=== PATIENT | female | born 1970 | race Caucasian/White ===

== ENCOUNTER 2017-04-18 19:09 | Emergency (ER) | payer OTHER ==
--- NOTE | 2017-04-18 21:08 | CT ---
CT OF BRAIN PERFORMED WITHOUT CONTRAST ENHANCEMENT: 04/18/17 HISTORY: Head injury. The ventricular and cisternal system is within normal limits. There are no signs of intracerebral hem orrhage or extra-axial fluid collections. Prominent Virchow-Cirstian space is noted on the right. No hem orrhage or mass effect. Mastoid air cells and visualized sinuses are clear. IMPRESSION: No acute intracranial abnormalities. POS: [facility]
== END 2017-04-18 19:55 | disposition home or self-care (01) ==
LOC: SCSER 19:09
DX: S09.90XA Unspecified injury of head, initial encounter (principal); D64.9 Anemia, unspecified; Z79.899 Other long term (current) drug therapy; W20.8XXA Other cause of strike by thrown, projected or falling object, initial encounter
CPT/HCPCS: 70450

== ENCOUNTER 2017-11-17 08:09 | Emergency (ER) | payer OTHER ==
[2017-11-17 08:34] LABS: #Lymphocytes 0.7 thou/uL (1.20-3.40); #Monocytes 0.3 thou/uL (0.11-0.59); #Neutrophils 8.6 thou/uL (1.40-6.50); %Basophils 0.1 % (0.0-1.0); %Eosinophils 0.1 % (0.0-10.0); %Lymphocytes 7.5 % (21.0-51.0); %Monocytes 2.9 % (0.0-10.0); %Neutrophils 89.4 % (42.0-75.0); Hemoglobin 13.2 g/dL (12.0-16.0); Mean Corpuscular HGB CONC 32.1 g/dL (32.0-36.0); Mean Corpuscular Hemoglobin 31.3 pg (27.0-31.0); Mean Corpuscular Volume 97.4 fL (78.0-98.0); Platelet Count 231 thou/uL (130-400); RBC Distribution Width 11.7 % (11.5-14.5); White Blood Cell (WBC) Count 9.6 thou/uL (4.8-10.8)
--- NOTE | 2017-11-17 08:49 | RAD ---
1 VIEW CHEST: Date: 11/17/17 COMPARISON: 05/17/15. HISTORY: Pain. FINDINGS: Normal cardiac silhouette. Pulmonary vessels and hilum are normal. Costophrenic angles are clear. No consolidation or mass. Air underneath the left hemidiaphragm is presumed to be in the stomach. There appears to be air distending the esophagus. No pneumothorax or osseous abnormalities. IMPRESSION: No acute cardiopulmonary process. Confirmation with a 2 view chest radiograph is recommended. Results of study discussed with Dr. Mehreen ordoñez on 11/17/17 at 0845 hours. CODE CR. POS: [facility]
[2017-11-17] MEDS ORDERED: Morphine 4 MG/ML VIAL ONE (08:52)
[2017-11-17] MEDS ORDERED: Ondansetron HCl/PF 4 MG/2 ML Vial ONE (08:53)
[2017-11-17 08:54] LABS: ALT (SGPT) 7 U/L (8-55); AST (SGOT) 11 U/L (5-34); Albumin 3.9 g/dL (3.5-5.0); Alkaline Phosphatase 64 U/L (40-150); Anion Gap 11 mmol/L (10-20); BUN (Urea Nitrogen) 14 mg/dL (7.0-18.7); Bilirubin, Total 0.3 mg/dL (0.2-1.2); CK (CPK) 50 U/L (29-168); Calc. Creatinine Clearance 0 mL/min (70-130); Calcium 9.5 mg/dL (7.8-10.44); Carbon Dioxide 24 mmol/L (22-29); Chloride 110 mmol/L (98-107); Estimated GFR-MDRD 83; Globulin 2.7 g/dL (2.4-3.5); Glucose 138 mg/dL (70-105); Lipase 30 U/L (8-78); Potassium 3.5 mmol/L (3.5-5.1); Protein, Total 6.6 g/dL (6.0-8.3); Sodium 141 mmol/L (136-145)
[2017-11-17 08:57] LABS: CKMB 1.4 ng/mL (0-6.6); Troponin I Less than 0.010 ng/mL (< 0.028)
--- NOTE | 2017-11-17 09:41 | RAD ---
PA AND LATERAL CHEST XRAY: DATE: 11/17/17. HISTORY: Chest pressure. History of gastric band procedure in 2002. The patient states chest pressure is in the center of chest. COMPARISON: 11/17/17 at 1041 hours. FINDINGS: There is a moderately distended esophagus from the level of the cervical esophagus to the level of th e GE junction. Provided history states a history of prior gastric band. However, a gastric band is not visualized on this exam. The cardiac silhouette and pulmonary vasculature are within normal limits. The lungs remain clear. There has been no interval change from prior exam. IMPRESSION: 1. Moderately distended esophagus. 2. On the prior study there was a mention of gas beneath the hemidiaphragm, but this is noted to be gas within bowel loops in the upper abdomen likely related to gas within the stomach. 3. The above findings were discussed with Dr. Coronado on 11/17/17 at 0918 hours. POS: [facility]
[2017-11-17 10:00] LABS: Bilirubin Negative (Negative); Blood, Urine Negative (Negative); Glucose, Urine (Dipstick) Negative (Negative); Leukocyte Negative (Negative); Nitrite Negative (Negative); Protein, Urine (Dipstick) Negative (Neg-Trace); Urobilinogen 0.2 mg/dL (0.2-1.0); pH, Urine 6.5 (5.0-9.0)
[2017-11-17 10:01] LABS: Clarity Cloudy (Clear)
--- NOTE | 2017-11-17 11:08 | RAD ---
ABDOMEN 2 VIEWS: Date: 11/17/17 HISTORY: Abdomen pain. FINDINGS: Gas and stool are apparent within the colon and rectum. Nondilated gas-filled loops of small bowel ar e present throughout the abdomen. No differential air fluid levels or evidence of free subdiaphragmat ic gas. Metallic clip overlies the gallbladder fossa. Dilatation of the esophagus is stable compared to prior chest radiographs. Phleboliths project over the pelvis. IMPRESSION: 1. Chronic esophageal dilatation. 2. Postoperative change of the abdomen. 3. Nonspecific bowel gas pattern. POS: [facility]
[2017-11-17] MEDS ORDERED: Pantoprazole 40 MG VIAL ONE (11:09)
== END 2017-11-17 12:25 | disposition home or self-care (01) ==
LOC: ERS 08:09
DX: K22.8 Other specified diseases of esophagus (principal); R07.9 Chest pain, unspecified; D64.9 Anemia, unspecified; Z79.899 Other long term (current) drug therapy
CPT/HCPCS: 36415; 71045; 71046; 74019; 80053; 81003; 82553; 83690; 83880; 84484; 85025; 93005; 96361; 96374; 96375; C9113; J2270; J2405

== ENCOUNTER 2017-11-19 11:01 | Inpatient (IN) | payer OTHER ==
[2017-11-19] MEDS ORDERED: Pantoprazole 40 MG VIAL IVP SCH (12:00)
[2017-11-19 12:47] LABS: ALT (SGPT) 59 U/L (8-55); AST (SGOT) 65 U/L (5-34); Alkaline Phosphatase 108 U/L (40-150); Anion Gap 16 mmol/L (10-20); BUN (Urea Nitrogen) 8 mg/dL (7.0-18.7); Bilirubin, Total 0.5 mg/dL (0.2-1.2); Calc. Creatinine Clearance 0 mL/min (70-130); Calcium 9.2 mg/dL (7.8-10.44); Carbon Dioxide 20 mmol/L (22-29); Chloride 105 mmol/L (98-107); Estimated GFR-MDRD 83; Globulin 2.9 g/dL (2.4-3.5); Glucose 86 mg/dL (70-105); Potassium 3.7 mmol/L (3.5-5.1); Protein, Total 6.9 g/dL (6.0-8.3); Sodium 137 mmol/L (136-145)
[2017-11-19] MEDS: Sodium Chloride 0.9% 1,000 ML IV SCH ×2 (12:49→20:36)
[2017-11-19 13:15] LABS: #Eosinphils 0.1 thou/uL (0.0-0.7); #Lymphocytes 1.3 thou/uL (1.20-3.40); #Monocytes 0.6 thou/uL (0.11-0.59); #Neutrophils 5.2 thou/uL (1.40-6.50); %Basophils 0.5 % (0.0-1.0); %Eosinophils 1.2 % (0.0-10.0); %Lymphocytes 17.9 % (21.0-51.0); %Monocytes 8.4 % (0.0-10.0); Hemoglobin 13.8 g/dL (12.0-16.0); Mean Corpuscular HGB CONC 33.5 g/dL (32.0-36.0); Mean Corpuscular Hemoglobin 32.3 pg (27.0-31.0); Mean Corpuscular Volume 96.2 fL (78.0-98.0); Mean Platelet Volume 9.5 fL (7.4-10.4); Platelet Count 247 thou/uL (130-400); RBC Distribution Width 11.5 % (11.5-14.5); RBC Morphology Normal; Red Blood Cell (RBC) Count 4.28 mill/uL (4.20-5.40); White Blood Cell (WBC) Count 7.3 thou/uL (4.8-10.8)
[2017-11-19] MEDS ORDERED: Lidocaine 1% PF 5 ML VIAL ONE (14:08)
[2017-11-19] MEDS ORDERED: PROPOFOL 200 MG/20 ML VIAL ONE (14:08)
[2017-11-19] MEDS ORDERED: Morphine 4 MG/ML VIAL ONE (16:14)
[2017-11-19] MEDS ORDERED: Ondansetron HCl/PF 4 MG/2 ML Vial ONE (16:22)
[2017-11-19 16:29] VITALS: BMI 25.3
--- NOTE | 2017-11-19 17:59 | CON ---
DATE OF CONSULTATION: 11/19/2017 REASON FOR CONSULTATION: Epigastric pain and vomiting. HISTORY OF PRESENT ILLNESS: Ms. Quiroga is a pleasant 47-year-old female who came to the hospital for acute epigastric pain and dry heaving, which began on Friday. She states that in 2002, she had a Christy band placed. She lost about 30 pounds without surgery and then stayed about the same level. Occasionally, she has intermittent problems with dysphagia , food seems to hang up when she swallowed, but she has not anything like what occurred on Friday. On Friday, she states she was eating and then got to where food would go down and she could not swallow any more food when come back up, she was dry heaving, she has green secretions. That ultimately stopped. She was able to handle secretions, but still has pain in the upper chest region. She went to the emergency room and on 11/17/2017, had x-rays of chest, which showed no inflitrate. There was moderately distended esophagus noted and laboratory studies show a normal CBC, normal complete metabolic profile, and normal lipase. She had negative cardiac enzymes, in fact, she has actually gone to the hospital because of the pressure she felt in her chest were from her heart. She was ultimately released to go see Dr. Ruiz in the office today and she had told him that she just felt very uncomfortable in her chest region, the symptoms go on, it is like tight or sharp pain in the mid chest region between the xiphoid and the suprasternal notch. She denies any shortness of breath or dyspnea. She can handle liquids presently, but not solids. The pain does not radiate to the back or anywhere else. Dr. Ruiz put her the hospital with a plan for removing her band tomorrow surgically. PAST MEDICAL HISTORY: Anemia; she is seeing Dr. Artis for this in the past; headache; reflux. PAST SURGICAL HISTORY: Cholecystectomy at the time of her Christy gastric banding. She has had hip surgery, she had a cataract surgery to her eyes, she states this was felt to be possibly due to steroids that she took for allergies. She has had cosmetic surgery in buttocks and hips. PRESENT MEDICATIONS AT HOME: Tizanidine, topiramate, Protonix, Zyrtec, calcium carbonate, Tums, H[place]. MEDICATIONS: Presently Zofran, morphine, Protonix 40 IV every day, sodium chloride 125 an hour, she had a rotator cuff surgery. SOCIAL HISTORY: Denies alcohol, drug use, smoking history. ALLERGIES: ERYTHROMYCIN, NITRATES, NSAIDS, PENICILLIN, PENTAZOCINE. PHYSICAL EXAMINATION: VITAL SIGNS: Temperature is 98.4, pulse 88, blood pressure 130/76. Saturation 94% to 99%. LUNGS: Clear. HEART: Regular, without murmurs. ABDOMEN: Soft, nontender. No palpable hepatosplenomegaly. EXTREMITIES: No clubbing, cyanosis or edema. CHEST: Chest wall is nontender. LABORATORY DATA: White count 7.3, hemoglobin 13.8, platelet count 247. Comprehensive metabolic profile was normal except for an AST, and ALT of 65 and 59. Bilirubin, and albumin were normal. Iron studies, ferritin was 217 on . ASSESSMENT: 1. Chest pain after swallowing and eating. She feels it almost is like her esophagus and stomach would not open. She had an x-ray that showed a dilated esophagus. She has had previous history of Christy band. Dr. Ruiz saw her and is concerned for possible of stenosis in the stomach not permitting food or other mucosal past this area or possibly the band is even eroded through her stomach, is plan on removing it tomorrow. I have asked to perform an EGD first today. 2. chest pain, does seem to be esophageal in nature. Cardiac enzymes ruled out. She has no pulmonary symptoms. Would plan EGD, if this is nondiagnostic, may reasonably consider a CT scan imaging. This was not done in the emergency room. 3. Agree with PPI and n.p.o. status. We will discuss findings with Dr. Ruiz once EGD is complete today. PLAN: EGD today. Risks, benefits, and possible complications of procedure was discussed with the patient, she wished to proceed. MTDD
[2017-11-19] MEDS: Pantoprazole 40 MG VIAL IVP SCH (20:37)
[2017-11-19] MEDS: Ondansetron HCl/PF 4 MG/2 ML Vial IVP PRN (21:09)
[2017-11-20] MEDS: Ondansetron HCl/PF 4 MG/2 ML Vial IVP PRN (03:24)
[2017-11-20] MEDS: Sodium Chloride 0.9% 1,000 ML IV SCH ×2 (03:41→11:59)
[2017-11-20] MEDS ORDERED: Morphine 4 MG/ML VIAL ONE (07:34)
[2017-11-20] MEDS ORDERED: Sodium Chloride 0.9% 100 ML ONE (08:21)
[2017-11-20] MEDS ORDERED: cefOXitin 2 GM VIAL ONE (08:21)
[2017-11-20] MEDS ORDERED: Ketorolac Tromethamine 30 MG/ML VIAL ONE (08:22)
[2017-11-20] MEDS ORDERED: Pantoprazole 40 MG VIAL IVP SCH (09:00)
[2017-11-20] MEDS: Pantoprazole 40 MG VIAL IVP SCH ×2 (09:13→20:00)
[2017-11-20] MEDS ORDERED: Bupivacaine/Epinephrine 0.25% 30 ML VIAL ONE (09:16)
[2017-11-20] MEDS ORDERED: Fentanyl 100 MCG/2 ML VIAL ONE ×3 (09:30→10:24)
[2017-11-20] MEDS ORDERED: Midazolam HCl 2 mg/2 ml Vial ONE (09:31)
[2017-11-20] MEDS ORDERED: Glycopyrrolate 0.2 MG/ML 5 ML SYRINGE ONE (10:36)
[2017-11-20] MEDS ORDERED: PROPOFOL 200 MG/20 ML VIAL ONE (10:36)
[2017-11-20] MEDS ORDERED: Esmolol 100 MG/10 ML VIAL ONE (10:36)
[2017-11-20] MEDS ORDERED: Ondansetron HCl/PF 4 MG/2 ML Vial ONE (10:36)
[2017-11-20] MEDS ORDERED: Succinylcholine Chloride 20 MG/ML 10 ml SYRINGE FS ONE (10:36)
[2017-11-20] MEDS ORDERED: Ondansetron HCl/PF 4 MG/2 ML Vial IVP PRN ×2 (12:21→13:12)
[2017-11-20] MEDS ORDERED: Promethazine HCl 25 MG/ML VIAL IM PRN ×2 (12:21→13:12)
[2017-11-20] MEDS ORDERED: Promethazine HCl 25 MG/ML VIAL SLOW IVP PRN (12:21)
[2017-11-20] MEDS ORDERED: D5 1/2 NS w/20 mEq KCL 1,000 ML ONE (13:00)
[2017-11-20] MEDS ORDERED: Promethazine HCl 25 MG/ML VIAL ONE (13:07)
[2017-11-20] MEDS ORDERED: Dextrose 50% Abboject 50 ML SYRINGE SLOW IVP PRN (13:12)
[2017-11-20] MEDS ORDERED: hydrALAZINE 20 MG/ML VIAL SLOW IVP PRN (13:12)
[2017-11-20] MEDS ORDERED: diphenhydrAMINE 50 MG/ML VIAL IVP PRN (13:12)
[2017-11-20] MEDS ORDERED: Dextrose 5% in Water 1,000 ML IV PRN (13:12)
[2017-11-20] MEDS ORDERED: Hydrocodone-Acetamin 15 ML UDCUP PO PRN (13:12)
[2017-11-20] MEDS: D5 1/2 NS w/20 mEq KCL 1,000 ML IV SCH ×2 (13:37→21:57)
[2017-11-20] MEDS: Morphine 4 MG/ML VIAL SLOW IVP PRN ×2 (16:52→20:04)
--- NOTE | 2017-11-20 17:29 | OP ---
HISTORY: Ms. Quiroga came in with nausea, vomiting, epigastric pain, history of previous Christy band . She has had problems for several years, although more recently she had a severe bout of pain this past Friday with epigastric pain and could vomit some slight and nothing can go down. She has recurr ent issues with regurgitation. Dr. Ruiz saw the patient in the office and plans to remove her ban d asked for preoperative EGD. PROCEDURES: EGD. ANESTHESIA: TIVA. COMPLICATIONS: The patient had desaturation, requiring removal of the scope and temporary bag mask v entilation. She seemed to have laryngospasm and recurrent coughing and choking throughout the proced ure. The patient notes she has episodes like this at night often, does suspect are probably related to chronic regurgitation and aspiration. POSTOPERATIVE DIAGNOSES: 1. Severe LA grade D esophagitis above 2 x 3 cm shallow, but significant ulcer in the distal esophag us consistent with recurrent regurgitation and reflux, not biopsied secondary to difficulty patient m aintaining saturations and coughing and choking throughout the procedure. 2. The GE junction was at 40 cm, which was normal. On entering the stomach, there was a large pucke red area of mucosa with very strictured area consistent with history of Christy band about 5-7 cm belo w the GE junction. There was quite a bit of fluid in this area to suction away immediately. The pat ient's head of bed was kept elevated the entire time. She denied any overt aspiration. 3. We were able to pass the narrowed area transiently. No ulcers, masses or eroding bands were seen in this area. We were able to see the pylorus, but unable to pass as we had to abandon the procedur e for bag mask ventilation for a time. Endoscope had to be removed. 4. Replacing the scope into the esophagus and upper stomach, multiple attempts were made to pass the band again, but this was unsuccessful and with the patient's difficulty with the procedure despite b est efforts of anesthesia and they offered intubation, but we decided not to proceed with that. The band be removed tomorrow. No overtly necrotic or gangrenous gastric mucosa was seen. I do no t think this could be managed endoscopically. Dr. Ruiz planned some surgical removal of her band tomorrow. If it does not seem to be feasible, the next step will be I would be getting imaging studi es to identify the actual stomach. RECOMMENDATIONS: Keep patient n.p.o., IV Protonix q.12 hours. ANESTHESIA: TIVA. PROCEDURE IN DETAIL: After the patient informed of the risks, benefits, possible complications of en doscopy including perforation, bleeding, reactions to medication and aspiration, informed consent was obtained. The patient brought to the endoscopy suite where she was sedated in gradual fashion. Onc e she was comfortable, a bite block was placed in the incisural orifice. The endoscope was advanced through the esophagus, stomach, and stricture in the proximal esophagus likely caused by her Mo michael band. The pylorus could be just seen could be passed, but then we had to come out as the patient had difficult with respiration and was needed bag mask ventilation. Once her saturations imp roved, the endoscope was readvanced in the esophagus, stomach, and duodenum. There was a large ulcer noted in the distal esophagus with LA grade D reflux esophagitis. The proximal stomach was entered at 40 cm and the band was noted. The stricturing of the gastric mucosa was noted at about 45-47 cm. There was no evidence of free perforation of the band and gastric lumen, although we could not reall y get past this area at all. On our second attempt, we were never able to get into the duodenal bulb , the first time we have gotten past the narrowed area of the proximal stomach, secondary to having t o leave the stomach quickly. Retroflexed views were normal and the GE junction. All of materials we re suctioned from the stomach and the scope removed. The patient tolerated the procedure well with n o complications.
[2017-11-20] MEDS: Ketorolac Tromethamine 30 MG/ML VIAL IVP SCH ×2 (18:06→23:21)
[2017-11-20] MEDS: Enoxaparin Sodium 40 MG/0.4 ML SYRINGE SC SCH (20:03)
[2017-11-21 04:56] LABS: #Lymphocytes 0.7 thou/uL (1.20-3.40); #Monocytes 0.3 thou/uL (0.11-0.59); #Neutrophils 8.7 thou/uL (1.40-6.50); %Basophils 0.2 % (0.0-1.0); %Eosinophils 0.4 % (0.0-10.0); %Lymphocytes 6.8 % (21.0-51.0); %Monocytes 3.4 % (0.0-10.0); %Neutrophils 89.2 % (42.0-75.0); Hemoglobin 11.7 g/dL (12.0-16.0); Mean Corpuscular HGB CONC 33.1 g/dL (32.0-36.0); Mean Corpuscular Hemoglobin 32.3 pg (27.0-31.0); Mean Corpuscular Volume 97.6 fL (78.0-98.0); Mean Platelet Volume 9.4 fL (7.4-10.4); Platelet Count 198 thou/uL (130-400); RBC Distribution Width 11.7 % (11.5-14.5); Red Blood Cell (RBC) Count 3.63 mill/uL (4.20-5.40); White Blood Cell (WBC) Count 9.7 thou/uL (4.8-10.8)
[2017-11-21 05:15] LABS: Anion Gap 9 mmol/L (10-20); BUN (Urea Nitrogen) 6 mg/dL (7.0-18.7); Calc. Creatinine Clearance 100 mL/min (70-130); Calcium 8.2 mg/dL (7.8-10.44); Carbon Dioxide 26 mmol/L (22-29); Chloride 107 mmol/L (98-107); Estimated GFR-MDRD 88; Glucose 135 mg/dL (70-105); Potassium 3.7 mmol/L (3.5-5.1); Sodium 138 mmol/L (136-145)
[2017-11-21] MEDS: D5 1/2 NS w/20 mEq KCL 1,000 ML IV SCH ×4 (06:25→23:41)
[2017-11-21] MEDS: Ketorolac Tromethamine 30 MG/ML VIAL IVP SCH ×4 (06:38→23:36)
[2017-11-21] MEDS ORDERED: Pantoprazole 40 MG VIAL IVP SCH (09:00)
--- NOTE | 2017-11-21 10:36 | RAD ---
ESOPHAGRAM: HISTORY: Lap-Band removal. FINDINGS: A single column contrast evaluation shows mild distention of the lower esophagus. The Lap-Band is no t visible. There is no evidence of obstruction or leak. FLUOROSCOPY TIME: 0.4 minutes. POS: [facility]
[2017-11-21] MEDS: Pantoprazole 40 MG VIAL IVP SCH (11:34)
[2017-11-21] MEDS ORDERED: HYDROcodone/Acetaminophen 7.5/325 mg Tablet PO PRN (13:21)
--- NOTE | 2017-11-21 13:42 | PRG ---
DATE OF SERVICE: 11/21/2017 SUBJECTIVE: Ms. Quiroga is postoperative day #1 following removal of her Christy gastric band yesterd ay and repair of a gastrotomy. An indwelling drain was placed at the end of the surgery. She had a swallow study today that was unremarkable. She was started on clear liquids and is tolerating as wel l. She denies any significant problems with swallowing. She has been ambulating well. She notes ap propriate discomfort, but also notes that this is improving. OBJECTIVE: VITAL SIGNS: She is afebrile, pulse is 91, blood pressure is 94/65. GENERAL: She is resting comfortably and speaking without limitations. She does not appear short of breath. LUNGS: Clear to auscultation throughout. ABDOMEN: Soft. Incisions are healing nicely. There are appropriate normoactive bowel sounds. Ther e is left-sided abdominal drain, draining a fairly thin and relatively clear serosanguineous fluid. LABORATORY STUDIES: Her white blood cell count is 9.7 with a hemoglobin of 11.7, platelet count of 1 98. Chemistry profile reveals essentially normal electrolytes. ASSESSMENT: She is doing well following removal of her Christy gastric band. She did have a signific ant gastrotomy during the surgery that was repaired. Drain is in place. She is tolerating clears to day. I will advance her to full liquid tomorrow. I would anticipate discharge home at that time wit h a drain in place. I would like to see her back in my office next Friday, at which time I would anticipate drain removal and an advancement of her diet at that time. I would anticipate her dischar ge on hydrocodone and Protonix. I will leave prescriptions for both of these on her chart. She will need to be on Protonix for at least 3 months and treatment of her esophageal ulcer.
[2017-11-21] MEDS: HYDROcodone/Acetaminophen 7.5/325 mg Tablet PO PRN ×2 (15:43→20:46)
[2017-11-21] MEDS: Enoxaparin Sodium 40 MG/0.4 ML SYRINGE SC SCH (20:38)
[2017-11-22] MEDS: Calcium Carbonate 500 MG ChewTAB PO PRN ×2 (02:38→13:39)
[2017-11-22] MEDS: Ondansetron HCl/PF 4 MG/2 ML Vial IVP PRN (02:58)
[2017-11-22] MEDS: Ketorolac Tromethamine 30 MG/ML VIAL IVP SCH ×2 (05:41→13:41)
[2017-11-22] MEDS: HYDROcodone/Acetaminophen 7.5/325 mg Tablet PO PRN (08:59)
--- NOTE | 2017-11-22 10:15 | DIS ---
DATE OF ADMISSION: 11/19/2017 DATE OF DISCHARGE: 11/21/2017 ADMIT DIAGNOSIS: Gastric outlet obstruction. DISCHARGE DIAGNOSIS: Gastric outlet obstruction. PROCEDURES: Removal of old Christy band and repair of stomach. Drain placement by Dr. Ruiz. CONDITION AT DISCHARGE: Improved. STAFF: Ej Ruiz M.D. HOSPITAL COURSE: On postop day 1, the patient is doing well. She had an episode of esophageal spasm from reflux last night. I assured her that it is likely to continue to happen until her ulcerative type changes there heel. She is to be discharged today if she tolerates the full liquid. She will r eturn to Dr. Ruiz' office next week for drain removal. She has prescriptions for pain medicine on the chart. Follow up with Dr. Ruiz next week.
[2017-11-22 16:36] VITALS: BP 97/67; TEMP 98.4
--- NOTE | 2017-11-22 18:54 | OP ---
DATE OF SURGERY: 11/20/2017 PREOPERATIVE DIAGNOSIS: Complete gastric obstruction secondary to perigastric foreign body (nonadjus table PTFE gastric band). POSTOPERATIVE DIAGNOSIS: Complete gastric obstruction secondary to perigastric foreign body (nonadju stable PTFE gastric band) with gastrotomy secondary to a band erosion to the stomach. OPERATION PERFORMED: Removal of nonadjustable PTFE gastric band, repair of gastrotomy, placement of intra-abdominal drain. SURGEON: Ej Ruiz M.D. ANESTHESIA: General endotracheal. INDICATIONS: The patient is a 47-year-old white female. About 10 years ago, she had a surgery for p lacement of a Christy band in [place]. This is a nonadjustable band of PTFE. Within the past few day s, she has developed severe pain and complete intolerance to any oral intake consistent with complete gastric obstruction. Upper GI endoscopy yesterday confirmed this. She was taken to the operating room at this time for tr eatment of a complete gastric obstruction caused by her gastric band. DESCRIPTION OF OPERATION: Informed consent was obtained. The patient was taken to the operating angelica m where general endotracheal anesthesia was obtained with the patient in supine position. Abdomen wa s prepped with ChloraPrep and draped in sterile fashion. Local anesthetic was infiltrated and a 5 mm supraumbilical incision was created through which a Veress needle was passed into the peritoneal cav ity and pneumoperitoneum established using carbon dioxide up to a pressure of 15 mmHg. A 5 mm trocar port was passed through this same incision. Laparoscopic camera was passed this port. Under direct vision, three additional 5 mm ports were placed. I placed two on the right side of the abdomen and one on the left side of the abdomen. I eventually placed the mid additional 5 mm epigastric incision that utilized for the Sadia retractor. I could not place the Sadia retractor at the beginni ng of the case secondary to severe perihepatic adhesions. I began the dissection by taking down omental adhesions to the anterior abdominal wall up near the li esteban. I eventually was able to dissect the inferior aspect of the liver. I then carefully dissected the liver off the underlying lesser omental and gastric structures. As I began lifting the left lobe of the liver, there was an obvious bulging portion of the stomach that proved eventually to be the d ilatation of the proximal stomach related to the occlusive band. There was severe inflammation betwe en the stomach and the liver in this area. With meticulous dissection, I was eventually able to completely dissect the liver and elevate this wi th the Sadai retractor. I then continued to dissect the stomach until I could appropriately iden tify the anatomy. I eventually turned my attention to the obvious pinched segment just inferior to t he bulge to the large bulging area. When I started dissecting down through this tissue, I eventually came upon the white material of the PTFE band. I was able to dissect this for several centimeters o n the anterior aspect of the stomach. There was severe inflammation associated with this, both in th e surrounding tissue and the underlying stomach where it was densely adherent. I eventually was able to transect the band sharply with scissors. As this was transected, the very narrow waist of the st omach opened immediately. As I had already dissected several centimeters of the band, I continued to dissect this so as to remove as much of the foreign material from within the abdomen around the stom ach as possible. I initially dissected this around the lesser curvature of the stomach. I would tra ction on the band. I was able to dissect well around the posterior aspect of the stomach where I div ided the band at this level and removed this segment of PTFE. I then turned my attention to the ante rior aspect of the stent around the greater curvature. As I began dissecting this in the same fashio n, it became quickly apparent that this segment had eroded into the stomach and likely was responsibl e for the obstruction had occurred. As I dissected the band away from the stomach at this level, I w as within the gastric lumen. A minimal amount of dissection was necessary in this area to completely remove the band that was also removed from within the abdomen. Attention was then turned to the gastrotomy that had occurred. There was still significant surroundi ng and external scar tissue. I mobilized enough this so I can clearly see the edges of the defect. I placed 2 sutures of 3-0 Vicryl in the mid portion of this defect and to and on the side of the less er curve. I was able to easily grasp the corner to the greater curvature. Using these stay sutures, I then fired a stapler using the Mack 60 stapler with a gold load, required 2 fires to completel y close this defect. The stomach was then insufflated with air while the staple line was under water to ensure that there was no air leak. I was able to completely submerge the stomach at this level and there was no eviden ce of any air leak in any portion that have been dissected. All irrigant was aspirated. A #19 round fluted drain was brought within the abdomen and brought out through the left-sided port. It was secured externally with 3-0 nylon suture. It was placed within the left upper abdomen underneath the left lobe of the liver and anterior to the stomach. Nathansen retractor was removed. The fascial defect at the 12 mm port site in the right abdomen was closed wit h 0 Vicryl suture using a GraNee needle. All ports and instruments removed under direct vision. Pne umoperitoneum was carefully evacuated. Quarter percent Marcaine with epinephrine was infiltrated at each port site. Skin edges approximated with 4-0 Monocryl subcuticular suture. Dermabond was placed externally. There were no complications. The patient tolerated the procedure well and was taken to recovery room in stable condition.
== END 2017-11-22 16:45 | disposition home or self-care (01) | DRG 327 ==
LOC: SJJU 11:01
PROVIDERS: ADMIT Specialist; ATTEND Specialist
PROC: 0DP64CZ Removal of Extraluminal Device from Stomach, Percutaneous Endoscopic Approach (ICD-10-PCS; principal; 2017-11-19)
PROC: 0DQ64ZZ Repair Stomach, Percutaneous Endoscopic Approach (ICD-10-PCS; 2017-11-20)
PROC: 0DJ08ZZ Inspection of Upper Intestinal Tract, Via Natural or Artificial Opening Endoscopic (ICD-10-PCS; 2017-11-20)
DX: K95.09 Other complications of gastric band procedure (principal); K22.10 Ulcer of esophagus without bleeding; T18.2XXA Foreign body in stomach, initial encounter; Z98.84 Bariatric surgery status; Y83.8 Other surgical procedures as the cause of abnormal reaction of the patient, or of later complication, without mention of misadventure at the time of the procedure; Y92.9 Unspecified place or not applicable; D64.9 Anemia, unspecified
CPT/HCPCS: 36415; 71045; 71046; 74019; 74241; 80048; 80053; 81003; 82553; 83690; 83880; 84484; 85025; 93005; 94760; 96361; 96374; 96375; A4216; C9113; J0131; J0694; J1650; J1885; J2001; J2250; J2270; J2405; J2550; J2704; J3010; J7050; Q9968

== ENCOUNTER 2017-12-05 05:02 | Emergency (ER) | payer OTHER ==
[2017-12-05 06:05] LABS: Bilirubin Negative (Negative); Blood, Urine Small (Negative); Clarity CLEAR (Clear); Glucose, Urine (Dipstick) Negative (Negative); Leukocyte Negative (Negative); Nitrite Negative (Negative); Protein, Urine (Dipstick) Negative (Neg-Trace); Specific Gravity, Urine 1.014 (1.002-1.036); Urobilinogen 0.2 mg/dL (0.2-1.0); pH, Urine 6.5 (5.0-9.0)
[2017-12-05 06:08] LABS: Bacteria/HPF None Seen HPF (None Seen); Hyaline Casts/LPF 0-3 HYALINE CAST LPF (0-3 Hyaline); Pathc Cast-AUWi Flag 0.58 (0-2.49); Squamous Epithelial None Seen HPF (0-3); WBC/HPF 0-3 HPF (0-3)
[2017-12-05 06:35] LABS: #Basophils 0.1 thou/uL (0.0-0.2); #Eosinphils 0.3 thou/uL (0.0-0.7); #Lymphocytes 1.6 thou/uL (1.20-3.40); #Monocytes 0.6 thou/uL (0.11-0.59); #Neutrophils 6.1 thou/uL (1.40-6.50); %Basophils 0.6 % (0.0-1.0); %Eosinophils 3.2 % (0.0-10.0); %Lymphocytes 18.6 % (21.0-51.0); %Monocytes 6.9 % (0.0-10.0); %Neutrophils 70.7 % (42.0-75.0); Hemoglobin 11.2 g/dL (12.0-16.0); Mean Corpuscular HGB CONC 32.6 g/dL (32.0-36.0); Mean Corpuscular Hemoglobin 30.7 pg (27.0-31.0); Mean Corpuscular Volume 94.1 fL (78.0-98.0); Mean Platelet Volume 7.3 fL (7.4-10.4); Platelet Count 469 thou/uL (130-400); RBC Distribution Width 12.3 % (11.5-14.5); Red Blood Cell (RBC) Count 3.64 mill/uL (4.20-5.40); White Blood Cell (WBC) Count 8.7 thou/uL (4.8-10.8)
[2017-12-05 06:45] LABS: ALT (SGPT) 11 U/L (8-55); AST (SGOT) 12 U/L (5-34); Albumin 3.3 g/dL (3.5-5.0); Alkaline Phosphatase 106 U/L (40-150); Anion Gap 8 mmol/L (10-20); BUN (Urea Nitrogen) 11 mg/dL (7.0-18.7); Bilirubin, Total 0.2 mg/dL (0.2-1.2); Calc. Creatinine Clearance 0 mL/min (70-130); Calcium 9.5 mg/dL (7.8-10.44); Carbon Dioxide 29 mmol/L (22-29); Chloride 103 mmol/L (98-107); Estimated GFR-MDRD 80; Globulin 3.2 g/dL (2.4-3.5); Glucose 85 mg/dL (70-105); Potassium 3.6 mmol/L (3.5-5.1); Protein, Total 6.5 g/dL (6.0-8.3); Sodium 136 mmol/L (136-145)
[2017-12-05 06:49] LABS: CKMB 0.8 ng/mL (0-6.6); Troponin I Less than 0.010 ng/mL (< 0.028)
--- NOTE | 2017-12-05 08:25 | RAD ---
CHEST 1 VIEW AND ABDOMEN 2 VIEWS: HISTORY: Left-sided flank pain. FINDINGS: The patient had surgery for removal of a noningestible laparoscopic gastric bag on 11/20/17. FINDINGS: The heart size is normal. There is an infiltrate at the left lung base with accompanying small effus ion. No free air or differential fluid levels are seen. The bowel gas pattern is unremarkable. There is fecal material in the colon. Surgical clip in the right hemiabdomen is again seen as on 11/17/17. Th ere is contrast in the pelvicalyceal systems and ureters on either side. POS: [facility]
--- NOTE | 2017-12-05 08:32 | CT ---
CT ARTERIOGRAM CHEST WITH IV CONTRAST AND 3D MIP IMAGING: History: Chest pain. Recent surgery. FINDINGS: There is good contrast opacification of the pulmonary arteries and thoracic aorta with normal branchi ng of the great vessels. Small amount of left pleural fluid with mild left basilar atelectasis. Withi n the partially visualized upper abdomen, there are post-operative changes of the stomach. IMPRESSION: 1. No CT evidence of pulmonary embolus. 2. Small left pleural effusion with left basilar atelectasis, likely related to recent upper abdomina l surgery. POS: [facility]
[2017-12-05] MEDS ORDERED: ISOVUE-370 76%-LOCM 1 ML ONE (10:29)
== END 2017-12-05 09:02 | disposition home or self-care (01) ==
LOC: ERS 05:02
DX: M54.9 Dorsalgia, unspecified (principal); G43.909 Migraine, unspecified, not intractable, without status migrainosus; D64.9 Anemia, unspecified; Z79.891 Long term (current) use of opiate analgesic; Z79.899 Other long term (current) drug therapy
CPT/HCPCS: 36415; 71275; 74022; 80053; 81003; 81015; 82553; 84484; 85025; 93005

== ENCOUNTER 2017-12-08 16:29 | Outpatient (CLI) | payer OTHER ==
--- NOTE | 2017-12-08 17:41 | RAD ---
CHEST 3 VIEWS: Date: 12/08/17 HISTORY: Left flank pain. COMPARISON: 12/05/17. FINDINGS: Persistent pleural and parenchymal changes in the left lung base. Stable aeration of the right lung. Stable cardiac silhouette. There is no pneumothorax. On the right lateral decubitus radiograph, pleural fluid does remain, suggesting component of loculat ion. IMPRESSION: Probable small component of loculated pleural fluid in the left lung base. Adjacent parenchymal garcia es are noted. Note, the film is marked as a left lateral decubitus radiograph; however, this is a right lateral dec ubitus radiograph. POS: [facility]
== END 2017-12-08 16:30 | disposition home or self-care (01) ==
LOC: BICRAD 16:29
PROVIDERS: ATTEND Family Medicine
DX: R10.9 Unspecified abdominal pain (principal)
CPT/HCPCS: 71046

== ENCOUNTER 2018-06-04 15:49 | Outpatient (CLI) | payer OTHER ==
--- NOTE | 2018-06-04 16:49 | MRI ---
FMRI cervical spine noncontrast: 06/04/2018 HISTORY: Cervicalgia in 48-year-old female COMPARISON: None FINDINGS: Cervical spinal cord is normal in size and signal. Vertebral body heights are maintained. No signific ant bone marrow signal abnormality involving vertebral bodies. C1-2: No high-grade central stenosis C2-3: No central stenosis. No right neural foraminal stenosis. Mild left neural foraminal stenosis. D isc space maintained. Severe left facet degenerative hypertrophy. Mild to moderate right degenerative facet hypertrophy. C3-4: Disc space maintained. Severe right facet degenerative hypertrophy. Moderate left facet DJD. No central stenosis. Small bilateral uncinate process osteophytes. Mild right neural foraminal stenosis . No left neural foraminal stenosis. C4-5: Severe right facet DJD hypertrophy. Edema of right facet complex. Mild left facet DJD. Mild gra de 1 anterolisthesis of C4 on C5 due to the severe right facet DJD. Mild disc space narrowing. No ted tral stenosis. Small right uncinate process osteophytes. Mild to moderate right neural foraminal sten osis. No left neural foraminal stenosis. C5-6: Severe right facet DJD. Moderate left facet DJD. Mild grade 1 anterolisthesis of C5 on C6. Mild disc space narrowing. No significant central spinal canal stenosis. Mild right neural foraminal sten osis. No left neural foraminal stenosis. C6-7: Moderate disc space narrowing. Moderate right facet DJD. Moderate to severe left facet DJD with bone marrow edema. Grade 1 anterolisthesis of C6 on C7. Diffuse broad-based disc bulge or disc-osteo phyte bar complex indents the ventral aspect of the thecal sac, causing mild to moderate central spin al canal stenosis. Small to moderate-sized bilateral uncinate process osteophytes. [id number] b ilateral neural foraminal stenosis. C7-T1: Bilateral moderate facet DJD. Bilateral mild neural foraminal stenosis. No central stenosis. M inimal disc space narrowing. IMPRESSION: 1. Multilevel severe facet osteoarthrosis, right worse than left. This includes bone marrow edema and facet joint effusions on the left at C6-7 and on the right at C4-5. 2. Multilevel neural foraminal stenosis, mostly mild-moderate. 3. No high-grade central spinal canal stenosis at any level.
== END 2018-06-04 15:50 | disposition home or self-care (01) ==
LOC: SCSMRI 15:49
PROVIDERS: ATTEND Family Medicine
DX: M54.2 Cervicalgia (principal); M47.812 Spondylosis without myelopathy or radiculopathy, cervical region; M48.02 Spinal stenosis, cervical region; R60.0 Localized edema
CPT/HCPCS: 72141

== ENCOUNTER 2018-07-07 08:08 | Outpatient (CLI) | payer OTHER ==
--- NOTE | 2018-07-07 09:21 | MRI ---
Thoracic spine MRI HISTORY: Radiculopathy of thoracic region, M54.14. Multiplanar multisequence noncontrast enhanced MRI images thoracic spine obtained. These demonstrate the spinal cord to be unremarkable with no evidence of cord masses or lesions. The thoracic vertebral bodies are unremarkable. No significant evidence of central or spinal stenosis seen. The neural foramen are patent. Vertebral bodies are unremarkable. IMPRESSION: normal MRI thoracic spine.
== END 2018-07-07 08:09 | disposition home or self-care (01) ==
LOC: BICMRI 08:08
PROVIDERS: ATTEND Specialist
DX: M54.14 Radiculopathy, thoracic region (principal)
CPT/HCPCS: 72146

== ENCOUNTER → 2018-10-07 | Day surgery (SDC) | payer OTHER | LOC: ENDO/OP 07:47 | PROVIDERS: ATTEND Specialist | DX: R13.10 Dysphagia, unspecified (principal); Z88.6 Allergy status to analgesic agent; Z88.0 Allergy status to penicillin; Z88.5 Allergy status to narcotic agent; Z88.1 Allergy status to other antibiotic agents; Z91.02 Food additives allergy status | CPT/HCPCS: 91010 ==

== ENCOUNTER 2020-12-18 16:56 | Outpatient (CLI) | payer BC ==
[2020-12-18 18:56] LABS: #Eosinphils 0.4 10x3/uL (0.0-0.5); #Neutrophils 7.3 10x3/uL (1.5-8.4); %Basophils 0.4 % (0.0-2.0); %Eosinophils 3.6 % (0.0-6.0); %Lymphocytes 20.8 % (18.0-47.0); %Monocytes 8.8 % (0.0-10.0); Hemoglobin 11.3 g/dL (12.0-15.5); Mean Corpuscular Hemoglobin 26.1 pg (27.0-33.0); Mean Corpuscular Volume 87.1 fl (81.6-98.3); Mean Platelet Volume 12.9 fl (7.4-10.4); Platelet Count 237 10x3/uL (150-450); RBC Distribution Width 14.8 % (11.5-14.5); Red Blood Cell (RBC) Count 4.33 10x6/uL (3.90-5.03)
[2020-12-19 14:43] LABS: SARS-CoV-2 PCR by NAA Not Detected (NotDetected)
== END 2020-12-18 16:57 | disposition home or self-care (01) ==
LOC: LABBT 16:56
PROVIDERS: ATTEND Orthopaedic Surgery
DX: Z01.812 Encounter for preprocedural laboratory examination (principal); M77.12 Lateral epicondylitis, left elbow; Z20.822 Contact with and (suspected) exposure to COVID-19
CPT/HCPCS: 85025; U0003; U0005

== ENCOUNTER 2021-01-23 10:00 | Outpatient (CLI) | payer BC ==
[2021-01-23 18:11] LABS: SARS-CoV-2 PCR by NAA Not Detected (NotDetected)
== END 2021-01-23 10:01 | disposition home or self-care (01) ==
LOC: LABBT 10:00
PROVIDERS: ATTEND Orthopaedic Surgery
DX: Z01.812 Encounter for preprocedural laboratory examination (principal); M18.12 Unilateral primary osteoarthritis of first carpometacarpal joint, left hand; Z20.822 Contact with and (suspected) exposure to COVID-19
CPT/HCPCS: U0003; U0005

== ENCOUNTER 2021-01-26 05:37 | Day surgery (SDC) | payer BC ==
[2021-01-24 14:57] VITALS: BMI 44.6
[2021-01-26] MEDS ORDERED: Clindamycin/D5W 600 mg/50 ml Premix Bag ONE (06:03)
[2021-01-26] MEDS ORDERED: Fentanyl 100 MCG/2 ML VIAL ONE (06:05)
[2021-01-26] MEDS ORDERED: Neomycin-Polymyxin 1 ML AMP ONE (06:13)
[2021-01-26] MEDS ORDERED: Bacitracin Zinc Ointment 30 gm TUBE ONE (06:13)
[2021-01-26] MEDS ORDERED: Betamet Acet/Betamet Na Ph 30 MG/5 ML VIAL ONE (06:13)
[2021-01-26] MEDS ORDERED: Bupivacaine PF 0.5% 30 ML VIAL ONE (06:13)
[2021-01-26] MEDS ORDERED: Midazolam HCl 2 mg/2 ml Vial ONE (06:43)
[2021-01-26] MEDS ORDERED: Lidocaine 1% w/Epinephrine 1:100K 20 ML VIAL ONE (08:00)
[2021-01-26] MEDS ORDERED: Labetalol HCl 100 MG/20 ML VIAL ONE (10:49)
[2021-01-26] MEDS ORDERED: Meperidine HCl/PF 25 MG/ML VIAL ONE (10:58)
[2021-01-26] MEDS ORDERED: Ondansetron PF 4 MG/2 ML Vial ONE (11:30)
[2021-01-26] MEDS ORDERED: Ketorolac Tromethamine 30 MG/ML VIAL ONE (11:38)
== END 2021-01-26 13:00 | disposition home or self-care (01) ==
LOC: SDC 05:37
PROVIDERS: ATTEND Orthopaedic Surgery
PROC: 0LN40ZZ Release Left Upper Arm Tendon, Open Approach (ICD-10-PCS; principal; 2021-01-26)
PROC: 0LU607Z Supplement Left Lower Arm and Wrist Tendon with Autologous Tissue Substitute, Open Approach (ICD-10-PCS; principal; 2021-01-26)
PROC: 3E0T3BZ Introduction of Anesthetic Agent into Peripheral Nerves and Plexi, Percutaneous Approach (ICD-10-PCS; principal; 2021-01-26)
PROC: 0RRT07Z Replacement of Left Carpometacarpal Joint with Autologous Tissue Substitute, Open Approach (ICD-10-PCS; principal; 2021-01-26)
DX: M18.12 Unilateral primary osteoarthritis of first carpometacarpal joint, left hand (principal); M77.12 Lateral epicondylitis, left elbow; Z88.0 Allergy status to penicillin; Z88.1 Allergy status to other antibiotic agents; Z88.6 Allergy status to analgesic agent; Z88.8 Allergy status to other drugs, medicaments and biological substances; Z98.890 Other specified postprocedural states; Z98.84 Bariatric surgery status
CPT/HCPCS: 76000; J0702; J1885; J2175; J2250; J2405; J3010; J3490; S0020

== ENCOUNTER 2021-08-01 07:50 | Outpatient (CLI) | payer BC | END 2021-08-01 07:51 | disposition home or self-care (01) | LOC: BICMAMMO 07:50 | PROVIDERS: ATTEND Family Medicine | DX: Z12.31 Encounter for screening mammogram for malignant neoplasm of breast (principal) | CPT/HCPCS: 77063; 77067 ==